=== PATIENT | female | born 1970 | race Two or more races ===

== ENCOUNTER 2018-07-23 13:33 | Emergency (ER) | payer MEDICAID, OTHER ==
[~2018-07-23] VITALS: Ht 149.9 cm; Wt 77.1 kg
[2018-07-23 13:46] VITALS: BP 148/94
[2018-07-23] MEDS ORDERED: KETOROLAC TROMETH 60MG/2ML VIAL IM ONE (14:45)
[2018-07-23] MEDS ORDERED: NALBUPHINE HCL 10 MG/1ml INJECTION IM ONE (15:15)
== END 2018-07-23 15:48 | disposition home or self-care (01) ==
LOC: ER 13:40
DX: S39.012A Strain of muscle, fascia and tendon of lower back, initial encounter (principal); E78.5 Hyperlipidemia, unspecified; I10 Essential (primary) hypertension; X58.XXXA Exposure to other specified factors, initial encounter; Y93.89 Activity, other specified; Y99.8 Other external cause status; Y92.89 Other specified places as the place of occurrence of the external cause
CPT/HCPCS: 72100; 96372; 99284; J2300; J1885